=== PATIENT | female | born 1990 | race Caucasian/White ===

== ENCOUNTER 2017-05-29 10:47 | Emergency (ER) | payer MEDICAID ==
[~2017-05-29] VITALS: Ht 165.1 cm; Wt 102.1 kg
[2017-05-29 10:57] VITALS: BP 152/115
--- NOTE | 2017-05-29 11:12 | NUR ---
PATIENT PRESENTS TO ED WITH C/O CHEST PAIN . PT STATES [place] THE [place]ARK [place]ER[place] WITH HER KIDS WHEN SHE FELT PAIN IN HER BACK. PATIENT STATES HER CHEST PAIN STARTED THIS MORNING AND RADIATES TO HER LEFT SHOULDER . DENIES N/V/D; SKIN IS PINK/WARM/DRY; AAOX4 WITH EVEN AND STEADY GAIT; LUNGS CLEAR BL; HR EVEN AND REGULAR; PT DENIES ANY FEVER, CP, SOB, OR COUGH AT THIS TIME; PATIENT STATES PAIN OF 9/10 AT THIS TIME; VSS; PATIENT POSITIONED FOR COMFORT; HOB ELEVATED; BEDRAILS UP X2; BED DOWN. ER MD MADE AWARE OF PT STATUS.
[2017-05-29 11:38] LABS: EOSINOPHILS # (AUTO) 0.2 K/uL (0-0.4); MEAN CORPUSCULAR HGB CONC 34 g/dL (33-37); MEAN CORPUSCULAR VOLUME 87 fL (80-94); MONOCYTES # (AUTO) 0.4 K/uL (0.8-1.0); NEUTROPHILS # (AUTO) 4.1 K/uL (1.8-7.7)
[2017-05-29 11:46] LABS: BASOPHILS # (AUTO) 0.3 K/uL (0.00-0.22); BASOPHILS % (AUTO) 3.6 % (0.0-2.0); EOSINOPHILS % (AUTO) 2.8 % (0.0-4.0); HEMATOCRIT 41.7 % (36-48); LYMPHOCYTES # (AUTO) 2.2 K/uL (2.5-16.5); LYMPHOCYTES % (AUTO) 30.4 % (20.5-51.1); MEAN CORPUSCULAR HEMOGLOBIN 29 pg (27-31); MONOCYTES % (AUTO) 6.2 % (1.7-9.3); PLATELET COUNT (AUTO) 214 K/uL (140-450); RED BLOOD CELL COUNT(AUTO) 4.81 MIL/uL (4.20-5.40); RED CELL DISTRIBUTION WIDTH 12.4 % (11.6-13.7); WHITE BLOOD COUNT (AUTO) 7.2 K/uL (4.8-10.8)
[2017-05-29 11:47] LABS: BILIRUBIN,URINE NEGATIVE (NEGATIVE); BLOOD, URINE TRACE-I (NEGATIVE); COLOR,URINE YELLOW (YELLOW); LEUKOCYTE ESTERASE ,URINE NEGATIVE (NEGATIVE); NITRITE, URINE NEGATIVE (NEGATIVE); UGLUCOSE NEGATIVE (NEGATIVE)
[2017-05-29 11:48] LABS: CARBON DIOXIDE 31.6 mmol/L (21-32); CREATININE 0.7 mg/dL (0.6-1.3); POTASSIUM 3.6 mmol/L (3.5-5.1)
[2017-05-29 11:54] LABS: ALBUMIN 3.7 g/dL (3.4-5.0); TOTAL BILIRUBIN 0.9 mg/dL (0.0-1.0)
[2017-05-29 12:00] LABS: APPEARANCE,URINE HAZY (CLEAR)
[2017-05-29 12:07] LABS: RBC,URINE 0-5 (RARE) /HPF (0-5); WBC,URINE 0-5 (RARE) /HPF (0-5)
[2017-05-29 12:22] VITALS: BP 151/92
--- NOTE | 2017-05-29 12:22 | NUR ---
Patient discharged with v/s stable. Written and verbal after care instructions given and explained. Patient alert, oriented and verbalized understanding of instructions. Ambulatory with steady gait. All questions addressed prior to discharge. ID band removed. Patient advised to follow up with PMD. Rx of flexeril,motrin given. Patient educated on indication of medication including possible reaction and side effects. Opportunity to ask questions provided and answered.
== END 2017-05-29 12:22 | disposition home or self-care (01) ==
LOC: MED 10:47
DX: M94.0 Chondrocostal junction syndrome [Tietze] (principal)
CPT/HCPCS: 36415; 80053; 81001; 81025; 83880; 84484; 85025; 93005; 99285

== ENCOUNTER 2019-10-12 19:12 | Emergency (ER) | payer MEDICAID ==
[~2019-10-12] VITALS: Ht 165.1 cm; Wt 88.9 kg
[2019-10-12 19:18] VITALS: BP 120/80
--- NOTE | 2019-10-12 19:21 | NUR ---
Patient ambulated to bed 7. RN evaluating patient at bedside.
--- NOTE | 2019-10-12 19:40 | NUR ---
29 Y/O FEMALE PRESENTS WITH SUBJECTIVE FEVER/ HEADACHE/ NAUSEA + MILD SOB X4 DAYS. PT REPORTS FEVER AT 100.5, SELF MEDICATED WITH MOTRIN AT 1500. RESP EVEN AND UNLABORED. LUNG SOUNDS CLEAR IN BILAT LOBES. NORMOACTIVE BOWEL SOUNDS. CAP REFILL <3. SKIN COOL/DRY. SITTING IN BED WAITING MSE PMH:DM, HTN
[2019-10-12] MEDS ORDERED: KETOROLAC 30 MG/ML VIAL IM ONE (20:20)
--- NOTE | 2019-10-12 20:31 | NUR ---
FLU SWAB TAKEN AT BEDSIDE. RAN TO LAB, HANDED TO SHIV.
[2019-10-12 21:35] VITALS: BP 120/80
--- NOTE | 2019-10-12 21:35 | NUR ---
Patient discharged with v/s stable. Written and verbal after care instructions given and explained. Patient alert, oriented and verbalized understanding of instructions. Ambulatory with steady gait. All questions addressed prior to discharge. ID band removed. Patient advised to follow up with PMD. Rx of TAMIFLU/NAPROSYN/TYLENOL given. Patient educated on indication of medication including possible reaction and side effects. Opportunity to ask questions provided and answered.
== END 2019-10-12 21:35 | disposition home or self-care (01) ==
LOC: MED 19:12
DX: J10.1 Influenza due to other identified influenza virus with other respiratory manifestations (principal); E11.9 Type 2 diabetes mellitus without complications; I10 Essential (primary) hypertension; Z98.890 Other specified postprocedural states
CPT/HCPCS: 71045; 87804; 96372; 99284; J1885; Q0092